=== PATIENT | female | born 1995 | race Hispanic/Latino ===

== ENCOUNTER 2018-04-03 07:27 | Emergency (ER) | payer MEDICAID ==
[2018-04-03 07:59] LABS: APPEARANCE,URINE Clear (CLEAR); BILIRUBIN,URINE Negative (NEGATIVE); COLOR,URINE Yellow (YELLOW); GLUCOSE, URINE (UA) Negative (NEGATIVE); KETONES,URINE Negative (NEGATIVE); LEUKOCYTE ESTERASE ,URINE Large (NEGATIVE); NITRATE,URINE Negative (NEGATIVE); OCCULT BLOOD,URINE Nonhemolyzed Trace (NEGATIVE); PROTEIN,URINE POS 1+ (NEGATIVE); UROBILINOGEN,URINE 0.2 mg/dL (0.2-1.0)
[2018-04-03 08:14] LABS: RAPID GROUP A STREP NEGATIVE (NEGATIVE)
[2018-04-03 08:32] LABS: BACTERIA,URINE Few /HPF (None Seen); WBC,URINE 51-100 /HPF (0-1)
[2018-04-03] MEDS ORDERED: CEPHALEXIN 500 MG CAPSULE ONE (09:13)
[2018-04-03] MEDS ORDERED: ACETAMINOPHEN EXTRA STRENGTH 500 MG TABLET ONE (09:13)
== END 2018-04-03 09:18 | disposition home or self-care (01) ==
LOC: EDH 07:27
DX: N39.0 Urinary tract infection, site not specified (principal); Z87.891 Personal history of nicotine dependence
CPT/HCPCS: 81001; 87088; 87186; 87804; 87880

== ENCOUNTER 2019-06-09 02:08 | Emergency (ER) | payer MEDICAID | END 2019-06-09 02:28 | disposition home or self-care (01) | LOC: EDH 02:08 | DX: Z02.83 Encounter for blood-alcohol and blood-drug test (principal) ==

== ENCOUNTER 2019-11-29 04:51 | Emergency (ER) | payer MEDICAID ==
[2019-11-29] MEDS ORDERED: IBUPROFEN 600 MG TABLET ONE (05:04)
[2019-11-29] MEDS ORDERED: ACETAMINOPHEN EXTRA STRENGTH 500 MG TABLET ONE (05:05)
[2019-11-29] MEDS ORDERED: OSELTAMIVIR PHOSPHATE 75 MG CAP ONE (05:05)
== END 2019-11-29 05:11 | disposition home or self-care (01) ==
LOC: EDH 04:51
DX: J11.1 Influenza due to unidentified influenza virus with other respiratory manifestations (principal); E11.9 Type 2 diabetes mellitus without complications; Z87.891 Personal history of nicotine dependence